=== PATIENT | female | born 1985 | race Hispanic/Latino ===

== ENCOUNTER 2021-06-02 06:13 | Day surgery (SDC) | payer BC ==
[2021-06-01 16:44] VITALS: BP 95/48
[~2021-06-02] VITALS: Ht 160 cm; Wt 67.1 kg
[2021-06-02] VITALS (18 sets, daily range): BP systolic 95–116; BP diastolic 43–65
[2021-06-02] MEDS ORDERED: LACTATED RINGERS 1000ML 1,000 ML IV ONE (06:57)
[2021-06-02] MEDS ORDERED: CALDOLOR 800MG+NS 250ML 250 ML IV ONE (06:58)
[2021-06-02] MEDS ORDERED: LIDOCAINE PF 100MG/5ML (2%) SYRINGE 5ML ONE (07:00)
[2021-06-02] MEDS ORDERED: ONDANSETRON 4MG INJ ONE (07:00)
[2021-06-02] MEDS ORDERED: FENTANYL CITRATE PF 50 MCG/1 ML 2ML VIAL ONE (07:00)
[2021-06-02] MEDS ORDERED: PROPOFOL 10 MG/ML 20ML VIAL IV ONE (07:00)
[2021-06-02] MEDS ORDERED: ROCURONIUM 10MG/1ML SYR 10 MG/ML ML ONE (07:00)
[2021-06-02] MEDS ORDERED: MIDAZOLAM HCL 1 MG/ML 2ML VIAL ONE (07:01)
[2021-06-02] MEDS: CEFAZOLIN SODIUM 1 GM VIAL ONE ×2 (07:12→07:45)
[2021-06-02] MEDS ORDERED: MEPERIDINE-PF 25 MG/ML SYG ONE (07:30)
[2021-06-02] MEDS ORDERED: EPHEDRINE SULFATE 50 MG/ML AMPULE ONE (07:56)
== END 2021-06-02 10:00 | disposition home or self-care (01) ==
LOC: DAH 06:13
PROVIDERS: ATTEND Obstetrics & Gynecology
DX: T83.39XA Other mechanical complication of intrauterine contraceptive device, initial encounter (principal); J45.909 Unspecified asthma, uncomplicated; Y83.8 Other surgical procedures as the cause of abnormal reaction of the patient, or of later complication, without mention of misadventure at the time of the procedure; Z79.899 Other long term (current) drug therapy; Z20.822 Contact with and (suspected) exposure to COVID-19
CPT/HCPCS: 36415; 58562; 84703; 87635; A4215 ×2; A4216; A4221 ×2; A4222 ×2; A4223 ×4; A4351; A4355; A4606; A4663 ×2; C9803; J0690; J1741; J2001; J2175; J2250; J2405; J2704; J3010; J3490; J7030; J7120